=== PATIENT | male | born 1960 | race Hispanic/Latino ===

== ENCOUNTER 2023-08-14 03:12 | Emergency (ER) | payer BC, OTHER ==
[~2023-08-14] VITALS: Ht 162.6 cm; Wt 74.8 kg
[2023-08-14] MEDS: ONDANSETRON 4MG INJ IVP ONE (03:52)
[2023-08-14] MEDS: LACTATED RINGERS 1000ML 1,000 ML IV ONE (03:52)
[2023-08-14] MEDS: ACETAMINOPHEN 500 MG TABLET PO ONE (03:53)
[2023-08-14] MEDS: ACETAMINOPHEN WITH CODEINE 1 TAB TAB PO ONE (03:53)
[2023-08-14 03:59] LABS: APPEARANCE,URINE CLEAR (CLEAR); BILIRUBIN,URINE NEGATIVE (NEGATIVE); COLOR,URINE LIGHT-YELLOW (YELLOW); GLUCOSE, URINE (UA) 30 mg/dL (NEGATIVE); KETONES,URINE NEGATIVE (NEGATIVE); LEUKOCYTE ESTERASE ,URINE NEGATIVE Leu/uL (NEGATIVE); NITRATE,URINE NEGATIVE (NEGATIVE); PH,URINE 5.5 (5.0-8.0); PROTEIN,URINE NEGATIVE (NEGATIVE); UROBILINOGEN,URINE 0.2 mg/dL (0.2-1.0)
[2023-08-14 04:07] LABS: AMPHET/METH SCREEN,URINE NEGATIVE (NEGATIVE); BARBITURATE SCREEN, URINE NEGATIVE (NEGATIVE); BENZODIAZEPINES SCREEN,URINE NEGATIVE (NEGATIVE); CANNABINOID SCREEN,URINE NEGATIVE (NEGATIVE); COCAINE SCREEN,URINE NEGATIVE (NEGATIVE); OPIATE SCREEN,URINE NEGATIVE (NEGATIVE); PHENCYCLIDINE SCREEN,URINE NEGATIVE (NEGATIVE)
[2023-08-14 04:07] LABS: BASOPHILS # (AUTO) 0.04 K/uL (0.00-0.20); BASOPHILS % (AUTO) 0.5 % (0.0-5.0); EOSINOPHILS # (AUTO) 0.07 K/uL (0.00-0.70); EOSINOPHILS % (AUTO) 0.9 % (0.0-8.0); HEMATOCRIT 43.1 % (42-54); IMMATURE GRANULOCYTE ABSOLUTE 0.04 K/uL (0-1); LYMPHOCYTES # (AUTO) 0.6 K/uL (1.0-4.8); LYMPHOCYTES % (AUTO) 7.1 % (21.0-51.0); MEAN CORPUSCULAR HEMOGLOBIN 31.1 pg (27.0-33.0); MEAN CORPUSCULAR HGB CONC 34.1 g/dL (32.0-36.0); MEAN CORPUSCULAR VOLUME 91.3 fL (79-99); MONOCYTES # (AUTO) 0.5 K/uL (0.1-1.0); MONOCYTES % (AUTO) 6.2 % (3.0-13.0); NEUTROPHILS # (AUTO) 6.6 K/uL (1.8-7.7); NEUTROPHILS % (AUTO) 84.8 % (40.0-77.0); PLATELET COUNT (AUTO) 189 K/uL (130-400); RED BLOOD CELL COUNT(AUTO) 4.72 MIL/uL (4.50-6.20); RED CELL DISTRIBUTION WIDTH 13.6 % (11.0-15.5); WHITE BLOOD COUNT (AUTO) 7.8 K/uL (4.8-10.8)
[2023-08-14 04:16] LABS: CREATININE 1.6 mg/dL (0.5-1.3); POTASSIUM 3.8 mmol/L (3.5-5.1)
[2023-08-14 04:20] LABS: ADD UA MICROSCOPIC YES
[2023-08-14 04:21] LABS: ALBUMIN 3.9 g/dL (3.5-5.0); BILIRUBIN,TOTAL 0.5 mg/dL (0.2-1.0); TOTAL PROTEIN, SERUM 7.8 g/dL (6.0-8.3)
[2023-08-14 04:38] LABS: BACTERIA,URINE None Seen /HPF (None Seen); SQUAMOUS EPITHELIAL CELL,UR None Seen /HPF (0-2); URIC ACID CRYSTALS,URINE Few /LPF (None Seen); WBC,URINE 0-1 /HPF (0-1)
[2023-08-14 04:41] LABS: RBC,URINE 0-1 /HPF (0-1)
[2023-08-14] MEDS: TAMSULOSIN HCL 0.4 MG CAP.ER.24H PO ONE (05:30)
[2023-08-14] MEDS: MORPHINE 4 MG SYG IVP ONE (05:32)
[2023-08-14] MEDS ORDERED: TAMS-1 PO (05:33)
[2023-08-14] MEDS ORDERED: CEPH500B PO (05:33)
[2023-08-14] MEDS ORDERED: TYL2 PO (05:33)
[2023-08-14 05:57] VITALS: BP 132/68; PULSE 79; RESP 20; O2SAT 98
== END 2023-08-14 05:54 | disposition home or self-care (01) ==
LOC: EDH 03:12
DX: N13.2 Hydronephrosis with renal and ureteral calculous obstruction (principal); Z88.6 Allergy status to analgesic agent
CPT/HCPCS: 99284; 74176; 96374; 80053; 80305; 85025; 36415; 81001; J7120; J2405; J2270

== ENCOUNTER 2023-12-14 16:48 | Inpatient (IN) | payer BC ==
[~2023-12-14] VITALS: Ht 162.6 cm; Wt 74.8 kg
[~2023-12-14 16:48] MED LIST: CEPH500B PO; TAMS-1 PO; TYL2 PO
[2023-12-14] MEDS: morPHINE 2 MG SYG IVP ONE (17:02)
[2023-12-14] MEDS: 0.9%NACL 1000ML 1,000 ML IV ONE (17:02)
[2023-12-14] MEDS: ondanSETRON 4MG INJ IVP ONE (17:02)
[2023-12-14 17:08] LABS: BASOPHILS # (AUTO) 0.02 K/uL (0.00-0.20); BASOPHILS % (AUTO) 0.3 % (0.0-5.0); EOSINOPHILS # (AUTO) 0.19 K/uL (0.00-0.70); IMMATURE GRANULOCYTE ABSOLUTE 0.02 K/uL (0-1); LYMPHOCYTES % (AUTO) 31.8 % (21.0-51.0); MEAN CORPUSCULAR HEMOGLOBIN 31.2 pg (27.0-33.0); MEAN CORPUSCULAR HGB CONC 34.7 g/dL (32.0-36.0); MONOCYTES # (AUTO) 0.5 K/uL (0.1-1.0); MONOCYTES % (AUTO) 7.6 % (3.0-13.0); NEUTROPHILS # (AUTO) 3.7 K/uL (1.8-7.7); PLATELET COUNT (AUTO) 201 K/uL (130-400); RED CELL DISTRIBUTION WIDTH 12.9 % (11.0-15.5); WHITE BLOOD COUNT (AUTO) 6.4 K/uL (4.8-10.8)
[2023-12-14 17:24] LABS: ALBUMIN 3.8 g/dL (3.5-5.0); BILIRUBIN,TOTAL 0.5 mg/dL (0.2-1.0); CREATININE 1.4 mg/dL (0.5-1.3); POTASSIUM 4.1 mmol/L (3.5-5.1); TOTAL PROTEIN, SERUM 7.5 g/dL (6.0-8.3)
[2023-12-14] MEDS: ketOROlac 30MG VIAL (30MG/ML) IVP ONE (18:37)
[2023-12-14 18:38] LABS: APPEARANCE,URINE CLEAR (CLEAR); BILIRUBIN,URINE NEGATIVE (NEGATIVE); COLOR,URINE YELLOW (YELLOW); GLUCOSE, URINE (UA) NEGATIVE (NEGATIVE); KETONES,URINE NEGATIVE (NEGATIVE); LEUKOCYTE ESTERASE ,URINE NEGATIVE Leu/uL (NEGATIVE); NITRATE,URINE NEGATIVE (NEGATIVE); OCCULT BLOOD,URINE MODERATE (NEGATIVE); PROTEIN,URINE NEGATIVE (NEGATIVE); UROBILINOGEN,URINE 0.2 mg/dL (0.2-1.0)
[2023-12-14] MEDS: tamSULOsin HCL 0.4 MG CAP.ER.24H PO STA (18:38)
[2023-12-14 18:40] LABS: ADD UA MICROSCOPIC YES
[2023-12-14 18:43] LABS: BACTERIA,URINE RARE /HPF (None Seen); MUCUS,URINE RARE LPF (None Seen)
[2023-12-14] MEDS ORDERED: PoTASSium chl 10% ELIXIR 20MEQ 20 MEQ/15 ML UDCUP PO PRN (21:00)
[2023-12-14] MEDS ORDERED: PoTASSium chloRIDE 20MEQ ER 20 MEQ ERTAB PO PRN (21:00)
[2023-12-14] MEDS ORDERED: ondanSETRON 4MG INJ IV PRN (21:00)
[2023-12-14] MEDS ORDERED: PoTASSium chloRIDE 20MEQ/100ML 100 ML IV PRN (21:00)
[2023-12-14] MEDS ORDERED: acetaMINOPHEN 325 MG TAB PO PRN (21:00)
[2023-12-14] MEDS ORDERED: cefTRIAXone 1G VIAL 1 GM in 0.9%NACL 50ML 50 ML IV SCH (21:00)
[2023-12-14] MEDS: FAMOTIDINE 20MG TAB PO SCH (22:02)
[2023-12-14] MEDS: 0.9%NACL 1000ML 1,000 ML IV SCH (22:02)
[2023-12-14] MEDS: cefTRIAXone 1G VIAL IV ONE (22:02)
[2023-12-14] MEDS: morPHINE 2 MG SYG IVP PRN (22:20)
[2023-12-14] MEDS: morPHINE 2 MG SYG ONE (22:22)
[2023-12-14 23:05] VITALS: BP 155/85; PULSE 87; RESP 20; TEMP 97.6
[2023-12-15] VITALS (15 sets, daily range): BP systolic 116–133; BP diastolic 66–86; PULSE 65–84; RESP 16–18; TEMP 97.5–98.5; O2SAT 97
[2023-12-15 05:39] LABS: BASOPHILS # (AUTO) 0.04 K/uL (0.00-0.20); BASOPHILS % (AUTO) 0.5 % (0.0-5.0); EOSINOPHILS # (AUTO) 0.17 K/uL (0.00-0.70); EOSINOPHILS % (AUTO) 2.2 % (0.0-8.0); HEMATOCRIT 44.5 % (42-54); IMMATURE GRANULOCYTE ABSOLUTE 0.03 K/uL (0-1); LYMPHOCYTES # (AUTO) 0.9 K/uL (1.0-4.8); LYMPHOCYTES % (AUTO) 11.8 % (21.0-51.0); MEAN CORPUSCULAR HGB CONC 33.5 g/dL (32.0-36.0); MEAN CORPUSCULAR VOLUME 92.5 fL (79-99); MONOCYTES # (AUTO) 0.6 K/uL (0.1-1.0); NEUTROPHILS % (AUTO) 77.1 % (40.0-77.0); PLATELET COUNT (AUTO) 158 K/uL (130-400); RED BLOOD CELL COUNT(AUTO) 4.81 MIL/uL (4.50-6.20); WHITE BLOOD COUNT (AUTO) 7.7 K/uL (4.8-10.8)
[2023-12-15 05:51] LABS: INR 1.06 (0.85-1.15); PROTHROMBIN TIME 11.4 SEC (9.6-11.6)
[2023-12-15 05:52] LABS: PARTIAL THROMBOPLASTIN TIME 26.5 SEC (26.3-35.5)
[2023-12-15 05:58] LABS: ALBUMIN 3.3 g/dL (3.5-5.0); BILIRUBIN,TOTAL 0.5 mg/dL (0.2-1.0); CREATININE 1.6 mg/dL (0.5-1.3); POTASSIUM 3.8 mmol/L (3.5-5.1)
[2023-12-15] MEDS ORDERED: IOHEXOL-350 50ML VIAL IV ONE (12:48)
[2023-12-15] MEDS ORDERED: LIDOCAINE HCL 400MG/20ML VIAL ONE (12:48)
[2023-12-15] MEDS ORDERED: HEParin-NS 1,000 UNIT/500 ML 500 ML IV ONE (12:48)
[2023-12-15] MEDS ORDERED: FENTanyl CITRate PF 50 MCG/1 ML 2ML VIAL ONE (13:16)
[2023-12-15] MEDS ORDERED: MIDAZOLAM HCL 1 MG/ML 2ML VIAL ONE (13:16)
[2023-12-15] MEDS: cefTRIAXone 1G VIAL IVPB SCH (22:56)
[2023-12-16] VITALS (8 sets, daily range): BP systolic 131–148; BP diastolic 75–83; PULSE 70–83; RESP 16–20; TEMP 97.6–98.8; O2SAT 98
[2023-12-16 05:24] LABS: BASOPHILS # (AUTO) 0.03 K/uL (0.00-0.20); BASOPHILS % (AUTO) 0.5 % (0.0-5.0); EOSINOPHILS # (AUTO) 0.13 K/uL (0.00-0.70); HEMATOCRIT 39.6 % (42-54); IMMATURE GRANULOCYTE ABSOLUTE 0.01 K/uL (0-1); LYMPHOCYTES # (AUTO) 0.7 K/uL (1.0-4.8); LYMPHOCYTES % (AUTO) 11.3 % (21.0-51.0); MEAN CORPUSCULAR HEMOGLOBIN 30.9 pg (27.0-33.0); MEAN CORPUSCULAR HGB CONC 33.8 g/dL (32.0-36.0); MEAN CORPUSCULAR VOLUME 91.5 fL (79-99); MONOCYTES # (AUTO) 0.5 K/uL (0.1-1.0); NEUTROPHILS # (AUTO) 5.1 K/uL (1.8-7.7); PLATELET COUNT (AUTO) 157 K/uL (130-400); RED BLOOD CELL COUNT(AUTO) 4.33 MIL/uL (4.50-6.20); RED CELL DISTRIBUTION WIDTH 13.1 % (11.0-15.5); WHITE BLOOD COUNT (AUTO) 6.5 K/uL (4.8-10.8)
[2023-12-16 05:46] LABS: ALBUMIN 2.9 g/dL (3.5-5.0); BILIRUBIN,TOTAL 0.4 mg/dL (0.2-1.0); CREATININE 1.5 mg/dL (0.5-1.3); MAGNESIUM 1.8 mg/dL (1.80-2.40); POTASSIUM 4.1 mmol/L (3.5-5.1); TOTAL PROTEIN, SERUM 6.4 g/dL (6.0-8.3)
[2023-12-16] MEDS: tamSULOsin HCL 0.4 MG CAP.ER.24H PO SCH (08:44)
[2023-12-16] MEDS: MAGNESIUM 2GM PREMIX 50ML 50 ML IV PRN (08:45)
[2023-12-16] MEDS: acetaMINOPHEN 325 MG TAB PO PRN (16:07)
[2023-12-17 04:00] VITALS: BP 135/85; PULSE 71; RESP 20; TEMP 97.3
[2023-12-17 08:06] VITALS: O2SAT 97
[2023-12-17 09:05] VITALS: BP 132/84; PULSE 80; RESP 17; TEMP 97.9
[2023-12-17 11:55] VITALS: BP 139/79; PULSE 78; RESP 18; TEMP 98.1
== END 2023-12-17 13:09 | disposition home or self-care (01) | DRG 690 ==
LOC: EDH 16:48 → EDHIP 20:39 → 3CH 22:57
PROVIDERS: ADMIT Hospitalist; ATTEND Hospitalist
PROC: 0T9030Z Drainage of Right Kidney with Drainage Device, Percutaneous Approach (ICD-10-PCS; principal; 2023-12-15)
DX: N13.6 Pyonephrosis (principal); N17.9 Acute kidney failure, unspecified; Z87.442 Personal history of urinary calculi; R74.8 Abnormal levels of other serum enzymes; I10 Essential (primary) hypertension; C76.0 Malignant neoplasm of head, face and neck; Z93.6 Other artificial openings of urinary tract status
CPT/HCPCS: 36415; 50432; 74176; 75989; 80053; 81001; 83735; 84153; 85025; 85610; 85730; 87071; 87086; 87205; 96374; 96375; 99156; 99157; C1769; C1894; G0378; J0696; J1644; J1885; J2250; J2270; J2405; J3010; J3475; J3490; J7030; Q9967; C1729

== ENCOUNTER 2023-12-26 14:23 | Emergency (ER) | payer BC ==
[~2023-12-26] VITALS: Ht 162.6 cm; Wt 73.9 kg
[~2023-12-26 14:23] MED LIST changes: -CEPH500B PO; -TYL2 PO
[2023-12-26 15:02] LABS: BASOPHILS # (AUTO) 0.03 K/uL (0.00-0.20); BASOPHILS % (AUTO) 0.7 % (0.0-5.0); EOSINOPHILS # (AUTO) 0.18 K/uL (0.00-0.70); EOSINOPHILS % (AUTO) 4.1 % (0.0-8.0); HEMATOCRIT 44.9 % (42-54); IMMATURE GRANULOCYTE ABSOLUTE 0.02 K/uL (0-1); LYMPHOCYTES # (AUTO) 0.9 K/uL (1.0-4.8); LYMPHOCYTES % (AUTO) 20.3 % (21.0-51.0); MEAN CORPUSCULAR HEMOGLOBIN 31.3 pg (27.0-33.0); MEAN CORPUSCULAR HGB CONC 34.7 g/dL (32.0-36.0); MEAN CORPUSCULAR VOLUME 90.2 fL (79-99); MONOCYTES # (AUTO) 0.5 K/uL (0.1-1.0); MONOCYTES % (AUTO) 10.7 % (3.0-13.0); NEUTROPHILS # (AUTO) 2.8 K/uL (1.8-7.7); NEUTROPHILS % (AUTO) 63.7 % (40.0-77.0); PLATELET COUNT (AUTO) 222 K/uL (130-400); RED BLOOD CELL COUNT(AUTO) 4.98 MIL/uL (4.50-6.20); RED CELL DISTRIBUTION WIDTH 12.9 % (11.0-15.5); WHITE BLOOD COUNT (AUTO) 4.4 K/uL (4.8-10.8)
[2023-12-26 15:11] LABS: CREATININE 1.2 mg/dL (0.5-1.3); POTASSIUM 3.8 mmol/L (3.5-5.1)
[2023-12-26 15:14] LABS: APPEARANCE,URINE CLOUDY (CLEAR); BILIRUBIN,URINE NEGATIVE (NEGATIVE); COLOR,URINE LIGHT-YELLOW (YELLOW); GLUCOSE, URINE (UA) NEGATIVE (NEGATIVE); KETONES,URINE NEGATIVE (NEGATIVE); LEUKOCYTE ESTERASE ,URINE 75 Leu/uL (NEGATIVE); NITRATE,URINE NEGATIVE (NEGATIVE); OCCULT BLOOD,URINE MODERATE (NEGATIVE); PH,URINE 5.5 (5.0-8.0); PROTEIN,URINE 50 mg/dL (NEGATIVE); UROBILINOGEN,URINE 0.2 mg/dL (0.2-1.0)
[2023-12-26 15:15] LABS: ADD UA MICROSCOPIC YES
[2023-12-26 15:18] LABS: BACTERIA,URINE RARE /HPF (None Seen); MUCUS,URINE RARE LPF (None Seen); RBC,URINE 51-100 /HPF (0-1); SQUAMOUS EPITHELIAL CELL,UR RARE /HPF (0-2)
[2023-12-26 15:58] VITALS: BP 130/84; PULSE 80; RESP 20; TEMP 98.2; O2SAT 99
== END 2023-12-26 16:09 | disposition home or self-care (01) ==
LOC: EDH 14:23
DX: R31.9 Hematuria, unspecified (principal); R10.9 Unspecified abdominal pain; Z93.6 Other artificial openings of urinary tract status; Z98.890 Other specified postprocedural states; Z88.6 Allergy status to analgesic agent
CPT/HCPCS: 36415; 74176; 80048; 81001; 85025; 87086

== ENCOUNTER 2025-04-03 08:00 | Emergency (ER) | payer BC, MEDICARE ==
[~2025-04-03] VITALS: Ht 162.6 cm; Wt 76.2 kg
[~2025-04-03 08:00] MED LIST changes: -TAMS-1 PO; +TAMS-55 PO
[2025-04-03] MEDS ORDERED: AMOX1TAB16 PO (08:22)
[2025-04-03] MEDS ORDERED: OFLO5DRO21 OTIC (08:22)
[2025-04-03] MEDS ORDERED: ACET-2247 PO (08:22)
--- NOTE | 2025-04-03 08:23 | ERN ---
ED Note History of Present Illness Stated Complaint: RIGHT EAR PAIN Chief Complaint: Earache Time Seen by MD: 08:02 Dictation: 64-year-old male presenting to the emergency department with right ear pain concern for ear infection this has been going on for the past 4-5 days. Patient has a hearing aid. Allergies: Coded Allergies: aspirin (Unverified Allergy, Mild, RASH, 08/14/23) Home Meds Active Scripts Tamsulosin HCl (Flomax) 0.4 Mg Cap.er.24h, 0.4 MG PO DAILY for 7 Days, #7 CAPSULE.DR Prov:BETI BLANC MD 08/14/23 Past Medical History Past Medical History: No Pertinent History, Kidney Stone Surgical History: Other Surgical History Other: EAR SURGERY IN 2021 Review of System Dictation Constitutional: Negative for fever,chills, and weight loss Eyes: Negative for injury, pain,redness, and discharge ENT: Per HPI Cardiovascular: Negative for chest pain, palpitations, and edema Respiratory: Negative for shortness of breath, cough, and wheezing, Abdomen/GI: Negative for abdominal pain, nausea, vomiting, diarrhea, and constipation Back: Negative for injury and pain : Negative for injury, bleeding and discharge MS/Extremity: Negative for injury and deformity Skin: Negative for rash, and discoloration Neuro: Negative for headache, weakness, numbness, tingling, and seizure Psych: Negative for suicide ideation, homicidal ideation, and hallucinations Initial Vital Sign VS Vital Signs Date Time Temp Pulse Resp B/P (MAP) Pulse Ox O2 Delivery O2 Flow Rate FiO2 04/03/25 08:01 98.1 81 16 147/88 98 Room Air Physical Exam Dictation General: awake, alert, NAD Head/Face: Normocephalic, atraumatic Eyes: PERRL, EOMI, vision at baseline ENT: oral cavity clear, scarring to the tympanic membrane erythema and erythema to the canal on right side Neck: Trachea midline, supple, no nuchal rigidity Cardiovascular: RRR, normal S1/S2, No MRGs, no JVD Respiratory: CTAB, no respiratory distress, No rales or wheezes Abdomen: Soft, non-tender, non-distended, normal bowel sounds, no guarding or rebound. Skin: Warm, dry, normal turgor, no rash MS/Extremity: Pulses equal, no cyanosis, neurovascular intact, FROM Neuro: COAx4, GCS 15, strength 5/5, CN 2-12 intact, normal cerebellar exam, normal gait, Psych: Normal behavior, mood, and affect normal ED Course ED Course Orders Procedure Category Date Status Time Tetracaine Hcl PHA 04/03/25 Verified (Pontocaine 0.5% 08:15 Vital Signs Date Time Temp Pulse Resp B/P (MAP) Pulse Ox O2 Delivery O2 Flow Rate FiO2 04/03/25 08:01 98.1 81 16 147/88 98 Room Air Medical Decision Making MDM MDM: Differential diagnosis: Rationale: Tests considered and ordered secondary to shared decision making include: Previous outside records reviewed: Old ER visits. Risk of complication and/or morbidity or mortality of patient management: None Medications-Per medication reconciliation Need for hospitalization: Patient does not meet criteria for hospitalization. Need for emergency major/minor surgery: No There are no social concerns with this patient. Prescription drug management Prescriptions will include symptomatic care Patient's prior external medical records from other ER visits were reviewed by me as indicated. Prior testing and results from previous visits were reviewed. Prior tests were taken into account with medical decision making and resource utilization, independent historian/historians were used to obtain complete medical history. I independently interpreted the test that were performed, results were reviewed by me and considered findings on radiology if ordered. Medical management and examination interpretation discussions were had by me with other qualified healthcare professionals as indicated for the patient's care. Otitis externa and media, placed on antibiotics stable for discharge. DX & DISP Disposition: Discharge Departure Impression: Primary Impression: Right otitis media Condition: Stable Scripts Acetaminophen (Tylenol) 325 Mg Tablet 1 TAB PO Q4HPRN PRN for pain or fever for 5 Days, #30 TAB 0 Refills Prov: JL ARNOLD MD 04/03/25 Ofloxacin (Ofloxacin) 0.3 % Drops 5 DROP OTIC BID for 5 Days, #10 ML 0 Refills Prov: JL ARNOLD MD 04/03/25 Amoxicillin/Potassium Clav (Amox Tr-K Clv 875-125 mg Tab) 875 Mg-125 Mg Tablet 1 TAB PO BID for 10 Days, #20 TAB 0 Refills Prov: JL ARNOLD MD 04/03/25 Referrals: STEPHANIE CARLISLE MD (PCP) JL ARNOLD MD Apr 03, 2025 08:23
[2025-04-03 08:33] VITALS: BP 145/86; PULSE 67; RESP 20; TEMP 98.1; O2SAT 99
[2025-04-03] MEDS: TETRACAINE HCL 0.5% 4 ML OPHTH SOLN OP STA (08:43)
== END 2025-04-03 08:34 | disposition home or self-care (01) ==
LOC: EDH 08:00
DX: H66.91 Otitis media, unspecified, right ear (principal); Z88.6 Allergy status to analgesic agent
CPT/HCPCS: 99283